=== PATIENT | female | born 1950 ===

== ENCOUNTER 2018-09-09 08:09 | Day surgery (SDC) | payer MEDICARE ==
[2018-08-24 12:07] VITALS: BMI 26.5
[2018-09-09] MEDS ORDERED: ceFAZolin IV 1 gm in Dextrose 1 GM/50 ML BAG IVPB ONE (09:11)
[2018-09-09] MEDS ORDERED: Dextrose 5%/0.45% NS 1,000 ML IV SCH (09:15)
[2018-09-09] MEDS ORDERED: Acetaminophen-Codeine 300/30 mg Tab PO PRN (09:16)
[2018-09-09] MEDS ORDERED: Propofol 10 mg/ml Inj (20 ML) ONE (09:36)
[2018-09-09] MEDS ORDERED: Succinylcholine Chloride 20 mg/ml Syr (5 ml) IV ONE (10:05)
[2018-09-09] MEDS ORDERED: HYDROmorphone 0.5 mg/0.5 ml ISec IVP PRN (10:23)
[2018-09-09] MEDS ORDERED: Racepinephrine 2.25% Inhal Soln 0.5 ML UD NEB PRN (10:23)
--- NOTE | 2018-09-09 11:05 | OP ---
PROCEDURE DATE: 09/09/2018 PREOPERATIVE DIAGNOSIS: Possible left piriform sinus mass. POSTOPERATIVE DIAGNOSIS: Possible left piriform sinus mass. PROCEDURE: Direct laryngoscopy and biopsy. SIGNIFICANT FINDINGS: Possible mass in left piriform sinus. DESCRIPTION OF PROCEDURE: The patient was brought into the room, placed in supine position. Anesthesia initiated through an ET tube. Shoulder roll was placed, neck extended. The patient was draped in usual manner. Tooth guard was placed over the upper teeth in order to protect them. Direct laryngoscope was inserted to the oral cavity, passed to the oropharynx and hypopharynx. The pharyngeal hendrickson, base of tongue, vallecula, epiglottis, AE folds, false cords, true cords, piriform sinuses, arytenoids were brought into view. No masses or lesions were noted. Multiple biopsies of left piriform sinus were taken and bleeding was controlled using cold water irrigation. Direct laryngoscope was removed. The tooth guard was removed. The patient was taken off anesthesia and taken to the recovery room in stable manner. Ruben Gerber MD
[2018-09-09 11:10] VITALS: O2SAT 100
[2018-09-09 11:51] VITALS: BP 127/80; PULSE 66; RESP 18; TEMP 98
== END 2018-09-09 12:15 | disposition home or self-care (01) ==
LOC: C.SDS 08:09
PROVIDERS: ATTEND Otolaryngology
DX: J39.2 Other diseases of pharynx (principal)
CPT/HCPCS: 31535; 88305; J0690; J2704; J3010